=== PATIENT | female | born 1950 | race Caucasian/White ===

== ENCOUNTER 2019-02-09 19:43 | Observation (INO) | payer MEDICARE, OTHER ==
[2019-02-09 20:53] LABS: ADD MAN DIFF? NO
[2019-02-09 20:57] LABS: BASOPHIL # 0.1 10^3/ul (0.0-0.1); BASOPHILS % 0.5 % (0.0-2.0); EOSINOPHILS # 0.1 10^3/ul (0.0-0.5); EOSINOPHILS % 0.6 % (0.0-7.0); HEMATOCRIT 45.6 % (37.0-47.0); HEMOGLOBIN 14.4 g/dl (12.0-16.0); LYMPHOCYTES # 1.8 10^3/ul (0.8-2.9); LYMPHOCYTES % 17.3 % (15.0-51.0); MEAN CORPUSCULAR HGB CONC 31.6 g/dl (32.0-37.0); MEAN CORPUSCULAR VOLUME 85.6 fl (82.0-101.0); MEAN PLATELET VOLUME 10.8 fl (7.4-10.4); MONOCYTE # 0.4 10^3/ul (0.3-0.9); MONOCYTES % 3.8 % (0.0-11.0); NEUTROPHIL # 8.1 10^3/ul (1.6-7.5); NEUTROPHILS % 77.3 % (39.0-77.0); PLATELET COUNT 290 10^3/UL (140-415); RED BLOOD COUNT 5.33 10^6/ul (4.20-5.40); RED CELL DISTRIBUTION WIDTH 14.3 % (11.5-14.5)
[2019-02-09 20:57] LABS: WHITE BLOOD COUNT 10.5 10^3/ul (4.8-10.8)
[2019-02-09 21:16] LABS: ANION GAP 8 (5-13); BLOOD UREA NITROGEN 11 mg/dl (7-20); CALCIUM 10.3 mg/dl (8.4-10.2); CARBON DIOXIDE 29 mmol/L (21-31); CHLORIDE 103 mmol/L (97-110); CREATININE 0.48 mg/dl (0.44-1.00); Estimated GFR > 60 mL/min (>60); GLUCOSE 117 mg/dl (70-220); POTASSIUM 3.8 mmol/L (3.5-5.1); SODIUM 140 mmol/L (135-144)
[2019-02-09 21:28] LABS: TROPONIN-I < 0.012 ng/ml (0.000-0.120)
[2019-02-09] MEDS ORDERED: ONDANSETRON 4 MG INJ IV (23:00)
[2019-02-09] MEDS ORDERED: NACL 0.9% 3 ML SYG IV (23:00)
[2019-02-09] MEDS ORDERED: NITROGLYCERIN (SL) 0.4 MG TAB SL (23:00)
[2019-02-09] MEDS ORDERED: NON-FORMULARY/PATIENT OWN MED (Losartan-Hydrochlorothiazide (Losartan-HCTZ) 1 TAB) PO (23:00)
[2019-02-09] MEDS ORDERED: ACETAMINOPHEN 325 MG TAB PO (23:00)
[2019-02-09] MEDS ORDERED: morphine 2 MG INJ IV (23:00)
[2019-02-09] MEDS ORDERED: BISACODYL (EC) 5 MG TAB PO (23:00)
[2019-02-09] MEDS ORDERED: DOCUSATE SODIUM 100 MG CAP PO (23:00)
[2019-02-10 00:40] LABS: CREATINE KINASE 42 IU/L (23-200)
[2019-02-10 00:54] LABS: CK INDEX 2.8; CK-MB 1.16 ng/ml (0.0-2.4); TROPONIN-I 0.014 ng/ml (0.000-0.120)
[2019-02-10] MEDS: ALPRAZOLAM 0.25 MG TAB PO (03:08)
[2019-02-10] MEDS: AMLODIPINE 10 MG TAB PO (03:09)
[2019-02-10] MEDS: hydrALAzine 20 MG INJ IV (03:09)
[2019-02-10] MEDS: PANTOPRAZOLE (EC) 40 MG TAB PO (04:48)
[2019-02-10 05:27] LABS: ADD MAN DIFF? NO
[2019-02-10 05:39] LABS: BASOPHILS % 0.4 % (0.0-2.0); EOSINOPHILS % 0.2 % (0.0-7.0); HEMATOCRIT 42.2 % (37.0-47.0); HEMOGLOBIN 13.4 g/dl (12.0-16.0); LYMPHOCYTES # 1.8 10^3/ul (0.8-2.9); LYMPHOCYTES % 18.3 % (15.0-51.0); MEAN CORPUSCULAR HEMOGLOBIN 26.8 pg (29.0-33.0); MEAN CORPUSCULAR HGB CONC 31.8 g/dl (32.0-37.0); MEAN CORPUSCULAR VOLUME 84.4 fl (82.0-101.0); MEAN PLATELET VOLUME 11.1 fl (7.4-10.4); MONOCYTE # 0.5 10^3/ul (0.3-0.9); MONOCYTES % 5.3 % (0.0-11.0); NEUTROPHIL # 7.4 10^3/ul (1.6-7.5); NEUTROPHILS % 75.3 % (39.0-77.0); PLATELET COUNT 271 10^3/UL (140-415); RED CELL DISTRIBUTION WIDTH 14.2 % (11.5-14.5)
[2019-02-10 05:39] LABS: WHITE BLOOD COUNT 9.8 10^3/ul (4.8-10.8)
[2019-02-10 05:49] LABS: HEMOGLOBIN A1C 5.2 % (0-5.9)
[2019-02-10 06:30] LABS: ALANINE AMINOTRANSFERASE 22 IU/L (13-69); ALBUMIN 3.8 g/dl (3.3-4.9); ALBUMIN/GLOBULIN RATIO 1.26; ALKALINE PHOSPHATASE 85 IU/L (42-121); ANION GAP 6 (5-13); ASPARTATE AMINO TRANSFERASE 18 IU/L (15-46); BILIRUBIN,INDIRECT 0.8 mg/dl (0-1.1); BILIRUBIN,TOTAL 0.8 mg/dl (0.2-1.3); BLOOD UREA NITROGEN 9 mg/dl (7-20); CARBON DIOXIDE 27 mmol/L (21-31); CHLORIDE 106 mmol/L (97-110); CREATININE 0.35 mg/dl (0.44-1.00); Estimated GFR > 60 mL/min (>60); GLUCOSE 100 mg/dl (70-220); MAGNESIUM 2.1 mg/dl (1.7-2.5); POTASSIUM 3.8 mmol/L (3.5-5.1); SODIUM 139 mmol/L (135-144); TOTAL PROTEIN 6.8 g/dl (6.1-8.1)
[2019-02-10 06:33] LABS: CREATINE KINASE 37 IU/L (23-200)
[2019-02-10 06:37] LABS: CK INDEX 3.1; CK-MB 1.14 ng/ml (0.0-2.4); TROPONIN-I 0.024 ng/ml (0.000-0.120)
[2019-02-10] MEDS: LOSARTAN 50 MG TAB PO (09:00)
[2019-02-10] MEDS: ASPIRIN 81 MG TAB PO (09:00)
[2019-02-10] MEDS: HYDROCHLOROTHIAZIDE 12.5 MG CAP PO (09:00)
[2019-02-10] MEDS: REGADENOSON 0.4 MG/5 ML SYG (11:55)
[2019-02-10] MEDS: ONDANSETRON 4 MG INJ IV (13:05)
[2019-02-10 13:40] LABS: TROPONIN-I < 0.012 ng/ml (0.000-0.120)
[2019-02-10] MEDS: ACETAMINOPHEN 325 MG TAB PO (15:30)
== END 2019-02-10 17:45 | disposition home or self-care (01) ==
LOC: 6WM 22:33 → E/R 19:43 → 6WM 02-10 11:16
DX: R07.9 Chest pain, unspecified (principal); I16.0 Hypertensive urgency; I10 Essential (primary) hypertension; E66.9 Obesity, unspecified; Z68.35 Body mass index [BMI] 35.0-35.9, adult; K21.9 Gastro-esophageal reflux disease without esophagitis
CPT/HCPCS: 36415; 71045; 78452; 80048; 80053; 82550; 82553; 83036; 83735; 84443; 84484; 85025; 93005; 93017; 93306; 99285-25; G0378